=== PATIENT | male | born 1980 | race Caucasian/White ===

== ENCOUNTER 2018-10-21 21:55 | Emergency (ER) | payer BC, OTHER ==
--- OUTSIDE RECORDS SUMMARY | 2018-10-21 21:58 | XMS REPORT ---
:1980 Author Organization [facility] Address [address] [place] [address] Care Team Providers Name Role Phone Unavailable Unavailable Unavailable Problems This patient has no known problems. Allergies, Adverse Reactions, Alerts This patient has no known allergies or adverse reactions. Medications This patient has no known medications.
[2018-10-21] MEDS ORDERED: NA CHLORIDE 0.9% 1,000 ML ONE (22:50)
[2018-10-21] MEDS ORDERED: KETOROLAC 30 MG/ML INJ ONE (22:50)
[2018-10-21 23:14] LABS: Absolute Neutrophil 4.9 K/uL (1.8-8.0); Basophils % 0.8 % (0-1.3); Eosinophils % 1.6 % (0-4.4); Hematocrit 41.9 % (39.6-49.0); Lymphocytes % 32.6 % (15.3-44.8); MPV 8.3 fL (7.6-11.3); Monocytes % 11.1 % (3.3-12.3)
[2018-10-21 23:29] LABS: ALT/SGPT 32 U/L (12-78); AST/SGOT 12 U/L (15-37); Albumin 4.3 g/dL (3.4-5.0); Alkaline Phosphatase 115 U/L (45-117); BUN Blood Urea Nitrogen 23 mg/dL (7-18); Bicarbonate 27 mmol/L (21-32); Bilirubin Direct < 0.1 mg/dL (0-0.2); Bilirubin Total 0.3 mg/dL (0.2-1.0); Glucose Level 113 mg/dL (74-106); Lipase 123 U/L (73-393); Potassium 4.2 mmol/L (3.5-5.1); Protein, Total 7.1 g/dL (6.4-8.2); Sodium Level 142 mmol/L (136-145)
[2018-10-22 00:33] LABS: Urine Blood NEGATIVE (NEG); Urine Glucose NEGATIVE (NEG); Urine Protein NEGATIVE (NEG); Urine Specific Gravity >1.030 (1.005-1.030); Urine pH 5.5 (5.0-7.0)
--- NOTE | 2018-10-22 03:48 | EDPHYS ---
Physician Documentation [facility] Name: Jimenez Peña Age: 38 yrs Sex: Male : 1980 Arrival Date: 10/21/2018 Time: 21:56 Bed 16 Private MD: ED Physician Sam Mcgovern HPI: 10/21 22:25 This 38 yrs old Male presents to ER via Ambulatory with complaints of Low pkl Back Pain - rad to groin. 22:25 The patient presents with pain that is acute. The symptoms are located in the lower pkl back. The pain radiates to the both testicles. Onset: The symptoms/episode began/occurred 1 week(s) ago, and became worse today. Historical: - Allergies: 22:00 No Known Allergies; la1 - PMHx: 22:00 None; la1 - Immunization history:: Adult Immunizations up to date. - Social history:: Smoking status: Patient/guardian denies using tobacco. - Ebola Screening: : No symptoms or risks identified at this time. ROS: 22:25 Eyes: Negative for injury, pain, redness, and discharge, ENT: Negative for injury, pkl pain, and discharge, Neck: Negative for injury, pain, and swelling, Cardiovascular: Negative for chest pain, palpitations, and edema, Respiratory: Negative for shortness of breath, cough, wheezing, and pleuritic chest pain, Abdomen/GI: Negative for abdominal pain, nausea, vomiting, diarrhea, and constipation. 22:25 Back: Positive for pain at rest, of the lower back. 22:25 : Negative for urinary symptoms. 22:25 MS/extremity: Negative for acute changes. 22:25 Skin: Negative for rash. 22:25 Neuro: Negative for altered mental status. Exam: 22:25 Head/Face: Normocephalic, atraumatic. Eyes: Pupils equal round and reactive to light, pkl extra-ocular motions intact. Lids and lashes normal. Conjunctiva and sclera are non-icteric and not injected. Cornea within normal limits. Periorbital areas with no swelling, redness, or edema. ENT: Nares patent. No nasal discharge, no septal abnormalities noted. Tympanic membranes are normal and external auditory canals are clear. Oropharynx with no redness, swelling, or masses, exudates, or evidence of obstruction, uvula midline. Mucous membranes moist. Neck: Trachea midline, no thyromegaly or masses palpated, and no cervical lymphadenopathy. Supple, full range of motion without nuchal rigidity, or vertebral point tenderness. No Meningismus. Chest/axilla: Normal chest wall appearance and motion. Nontender with no deformity. No lesions are appreciated. Cardiovascular: Regular rate and rhythm with a normal S1 and S2. No gallops, murmurs, or rubs. Normal PMI, no JVD. No pulse deficits. Respiratory: Lungs have equal breath sounds bilaterally, clear to auscultation and percussion. No rales, rhonchi or wheezes noted. No increased work of breathing, no retractions or nasal flaring. Abdomen/GI: Soft, non-tender, with normal bowel sounds. No distension or tympany. No guarding or rebound. No evidence of tenderness throughout. 22:25 Back: pain, that is moderate, of the lower back. 22:25 : Exam negative for acute changes. 22:25 Musculoskeletal/extremity: Exam is negative for acute changes. 22:25 Skin: Exam negative for rash. 22:25 Neuro: Orientation: is normal, Mentation: is normal, Cranial nerves: grossly normal, Motor: is normal. Vital Signs: 22:00 BP 145 / 92; Pulse 64; Resp 18; Temp 97.4; Pulse Ox 98% on R/A; Weight 136.08 kg; la1 Height 5 ft. 11 in. (180.34 cm); 23:00 BP 138 / 78; Pulse 63; Resp 16; Pulse Ox 96% on R/A; jb4 10/22 00:00 BP 126 / 74; Pulse 75; Resp 16; Pulse Ox 96% on 2 lpm NC; jb4 01:00 BP 98 / 56; Pulse 80; Resp 16; Pulse Ox 96% on 2 lpm NC; jb4 02:00 BP 129 / 71; Pulse 76; Resp 16; Pulse Ox 98% on 2 lpm NC; jb4 03:00 BP 135 / 85; Pulse 72; Resp 16; Pulse Ox 98% on 2 lpm NC; jb4 03:45 BP 133 / 80; Pulse 76; Resp 16; Pulse Ox 100% on R/A; jb4 10/21 22:00 Body Mass Index 41.84 (136.08 kg, 180.34 cm) la1 MDM: 10/21 22:06 Patient medically screened. pkl 10/22 03:45 Data reviewed: vital signs, nurses notes. pkl 10/21 22:23 Order name: Basic Metabolic Panel; Complete Time: 00:25 pkl 10/21 22:23 Order name: CBC with Diff; Complete Time: 00:25 pkl 10/21 22:23 Order name: Creatinine for Radiology; Complete Time: 00:25 pkl 10/21 22:23 Order name: Hepatic Function; Complete Time: 00:25 pkl 10/21 22:23 Order name: Lipase; Complete Time: 00:25 pkl 10/21 22:30 Order name: Urine Dipstick--Ancillary (enter results); Complete Time: 02:36 mw2 10/22 00:26 Order name: CT Abd/Pelvis - W/Contrast pkl 10/21 22:23 Order name: IV Saline Lock; Complete Time: 22:48 pkl 10/21 22:23 Order name: Labs collected and sent; Complete Time: 22:48 pkl Administered Medications: 10/21 22:09 CANCELLED (Patient Refused): NS 0.9% (20 ml/kg) 20 ml/kg IV at 1 bolus once pkl 22:10 CANCELLED (Patient Refused): NS 0.9% (20 ml/kg) 20 ml/kg IV at 1 bolus once pkl 22:45 Drug: NS 0.9% 1000 ml Route: IV; Rate: 1000 ml; Site: right antecubital; 4 23:30 Follow up: Response: No adverse reaction; IV Status: Completed infusion [facility] 22:45 Drug: TORadol 30 mg Route: IVP; Site: right antecubital; 4 23:30 Follow up: Response: No adverse reaction; Pain is decreased jb4 Disposition: 10/22/18 03:48 Discharged to Home. Impression: Low back pain. Bilateral testicular pain. - Condition is Stable. - Prescriptions for Ultram 50 mg Oral Tablet - take 1 tablet by ORAL route every 8 hours As needed; 20 tablet. - Medication Reconciliation Form, Thank You Letter, Antibiotic Education, Prescription Opioid Use form. - Follow up: Janes Coulter MD; When: 1 - 2 days; Reason: Re-evaluation by your physician. - Problem is new. - Symptoms have improved. Signatures: Dispatcher [employer] EDMS Sam Mcgovern MD MD pkl Clay Nelson, RN RN la1 Gm Vail, RN RN jb4 Corrections: (The following items were deleted from the chart) 22:09 22:08 NS 0.9% (20 ml/kg) 20 ml/kg IV at 1 bolus once ordered. pkl pkl 22:10 22:08 NS 0.9% (20 ml/kg) 20 ml/kg IV at 1 bolus once ordered. pkl pkl 22:11 22:09 Chest Single View+RAD.RAD.BRZ ordered. EDMS EDMS 22:13 22:09 Group A Streptococcus Rapid Sc+BA.LAB.BRZ ordered. EDMS EDMS 22:14 22:09 CBC+H.LAB.BRZ ordered. EDMS EDMS 22:14 22:09 BASIC METABOLIC PANEL+C.LAB.BRZ ordered. EDMS EDMS 22:14 22:09 Influenza Screen (A \T\ B)+BA.LAB.BRZ ordered. EDSD EDSD 10/22 04:03 03:48 10/22/2018 03:48 Discharged to Home. Impression: Low back pain. Bilateral jb4 testicular pain. Condition is Stable. Forms are Medication Reconciliation Form, Thank You Letter, Antibiotic Education, Prescription Opioid Use. Follow up: Janes Coulter; When: 1 - 2 days; Reason: Re-evaluation by your physician. Problem is new. Symptoms have improved. pkl
--- NOTE | 2018-10-22 03:48 | ER ---
Nurse's Notes [facility] Name: Jimenez Peña Age: 38 yrs Sex: Male : 1980 Arrival Date: 10/21/2018 Time: 21:56 Bed 16 Private MD: Diagnosis: Low back pain. Bilateral testicular pain Presentation: 10/21 21:59 Presenting complaint: Patient states: for the last week I have had lower back pain that la1 radiates to my right groin area that is getting much worse today. the only thing that feels better is laying flat. Transition of care: patient was not received from another setting of care. Onset of symptoms was October 21, 2018. Risk Assessment: Do you want to hurt yourself or someone else? Patient reports no desire to harm self or others. Initial Sepsis Screen: Does the patient meet any 2 criteria? No. Patient's initial sepsis screen is negative. Does the patient have a suspected source of infection? No. Patient's initial sepsis screen is negative. Care prior to arrival: None. 21:59 Method Of Arrival: Ambulatory la1 21:59 Acuity: APRIL 3 la1 Historical: - Allergies: 22:00 No Known Allergies; la1 - PMHx: 22:00 None; la1 - Immunization history:: Adult Immunizations up to date. - Social history:: Smoking status: Patient/guardian denies using tobacco. - Ebola Screening: : No symptoms or risks identified at this time. Screenin:10 Abuse screen: Denies threats or abuse. Nutritional screening: No deficits noted. jb4 Tuberculosis screening: No symptoms or risk factors identified. Fall Risk None identified. Assessment: 22:10 General: Appears in no apparent distress. uncomfortable, Behavior is calm, cooperative, jb4 appropriate for age. Pain: Complains of pain in low back area Pain radiates to groin Pain currently is 4 out of 10 on a pain scale. at worst was 9 out of 10 on a pain scale. Quality of pain is described as stabbing. Neuro: Level of Consciousness is awake, alert, obeys commands, Oriented to person, place, time, situation. Cardiovascular: Patient's skin is warm and dry. Respiratory: Airway is patent Respiratory effort is even, unlabored, Respiratory pattern is regular, symmetrical. GI: No signs and/or symptoms were reported involving the gastrointestinal system. : Reports pain testicle, Denies burning with urination, discharge. EENT: No signs and/or symptoms were reported regarding the EENT system. Derm: Skin is intact, Skin is pink, warm \T\ dry. Musculoskeletal: Circulation, motion, and sensation intact. 23:00 Reassessment: Patient appears in no apparent distress at this time. Patient and/or jb4 family updated on plan of care and expected duration. Pain level reassessed. Patient is alert, oriented x 3, equal unlabored respirations, skin warm/dry/pink. 10/22 00:00 Reassessment: Patient appears in no apparent distress at this time. Patient and/or jb4 family updated on plan of care and expected duration. Pain level reassessed. Patient is alert, oriented x 3, equal unlabored respirations, skin warm/dry/pink. Pt placed on 2l NC while sleeping due to O2 sats dropping to 88% on RA. 01:00 Reassessment: Patient appears in no apparent distress at this time. Patient and/or jb4 family updated on plan of care and expected duration. Pain level reassessed. Pt is resting with eyes closed respirations are even and unlabored. 01:51 Reassessment: Patient appears in no apparent distress at this time. Patient and/or jb4 family updated on plan of care and expected duration. Pain level reassessed. Patient is alert, oriented x 3, equal unlabored respirations, skin warm/dry/pink. 03:00 Reassessment: Patient appears in no apparent distress at this time. Patient and/or jb4 family updated on plan of care and expected duration. Pain level reassessed. Patient is alert, oriented x 3, equal unlabored respirations, skin warm/dry/pink. 04:01 Reassessment: Patient appears in no apparent distress at this time. Patient and/or jb4 family updated on plan of care and expected duration. Pain level reassessed. Patient is alert, oriented x 3, equal unlabored respirations, skin warm/dry/pink. Vital Signs: 10/21 22:00 BP 145 / 92; Pulse 64; Resp 18; Temp 97.4; Pulse Ox 98% on R/A; Weight 136.08 kg; la1 Height 5 ft. 11 in. (180.34 cm); 23:00 BP 138 / 78; Pulse 63; Resp 16; Pulse Ox 96% on R/A; jb4 10/22 00:00 BP 126 / 74; Pulse 75; Resp 16; Pulse Ox 96% on 2 lpm NC; jb4 01:00 BP 98 / 56; Pulse 80; Resp 16; Pulse Ox 96% on 2 lpm NC; jb4 02:00 BP 129 / 71; Pulse 76; Resp 16; Pulse Ox 98% on 2 lpm NC; jb4 03:00 BP 135 / 85; Pulse 72; Resp 16; Pulse Ox 98% on 2 lpm NC; jb4 03:45 BP 133 / 80; Pulse 76; Resp 16; Pulse Ox 100% on R/A; jb4 10/21 22:00 Body Mass Index 41.84 (136.08 kg, 180.34 cm) la1 ED Course: 10/21 21:56 Patient arrived in ED. am2 21:59 Triage completed. la1 22:00 Arm band placed on left wrist. la1 22:01 Gm Vail, RASHAWN is Primary Nurse. jb4 22:06 Sam Mcgovern MD is Attending Physician. pkl 22:10 Patient has correct armband on for positive identification. Bed in low position. Call jb4 light in reach. Side rails up X 1. Pulse ox on. NIBP on. 22:50 Inserted saline lock: 18 gauge in right antecubital area, using aseptic technique. mb4 Blood collected. 22:51 Initial lab(s) drawn, by me, sent to lab. mb4 10/22 02:[address] via wheelchair. kw1 02:52 CT Abd/Pelvis - W/Contrast In Process Unspecified. EDMS 03:46 Janes Coulter MD is Referral Physician. pkl 04:02 No provider procedures requiring assistance completed. jb4 04:02 IV discontinued, intact, bleeding controlled. jb4 Administered Medications: 10/21 22:09 CANCELLED (Patient Refused): NS 0.9% (20 ml/kg) 20 ml/kg IV at 1 bolus once pkl 22:10 CANCELLED (Patient Refused): NS 0.9% (20 ml/kg) 20 ml/kg IV at 1 bolus once pkl 22:45 Drug: NS 0.9% 1000 ml Route: IV; Rate: 1000 ml; Site: right antecubital; jb4 23:30 Follow up: Response: No adverse reaction; IV Status: Completed infusion jb4 22:45 Drug: TORadol 30 mg Route: IVP; Site: right antecubital; jb4 23:30 Follow up: Response: No adverse reaction; Pain is decreased jb4 Outcome: 10/22 03:48 Discharge ordered by . tali 04:02 Discharged to home ambulatory. jb4 04:02 Condition: stable 04:02 Discharge instructions given to patient, Instructed on discharge instructions, follow up and referral plans. medication usage, Demonstrated understanding of instructions, follow-up care, medications, Prescriptions given X 1. 04:03 Patient left the ED. jb4 Signatures: Dispatcher [employer] EDMS Sam Mcgovern MD MD pkl Attema, Lee RN RN Gm Strauss RN RN jb4 Sammi Hinds Kimberly kw1 Susie Gil4 Corrections: (The following items were deleted from the chart) 10/21 22:47 21:45 TORadol 30 mg IVP in right antecubital jb4 jb4
--- NOTE | 2018-10-23 10:18 | RAD REPORT ---
EXAM DESCRIPTION: CT - Abdomen Pelvis W Contrast CLINICAL HISTORY: Abdominal pain TECHNIQUE: Multiple helical axial images were obtained through the abdomen and pelvis using intraven ous contrast (95 mL [id number]-300). Coronal and sagittal reformatted images were obtained. All CT scans at this facility use dose modulation, iterative reconstruction, and/or weight-based dosi ng when appropriate to reduce radiation dose to as low as reasonable achievable. COMPARISON: None. FINDINGS: Lung bases: Appear unremarkable. Liver: Homogenous attenuation is noted. Gallbladder/biliary: Appear unremarkable. Pancreas: Unremarkable. No evidence of ductal enlargement. Spleen: Appears unremarkable. No splenomegaly. Adrenals: Unremarkable. Kidneys and ureters: No evidence of hydronephrosis. Normal enhancement. Bladder: Unremarkable. Pelvic organs: Unremarkable. Bowel: Colonic diverticula are present. There is trace stranding near a diverticulum of the descendin g colon. No evidence of bowel obstruction. No bowel wall thickening. Appendix appears unremarkable. Vasculature: Unremarkable. Peritoneum: No free air. No significant free fluid. Lymph nodes: Unremarkable. Soft tissues: Unremarkable. Bones: Unremarkable. IMPRESSION: Trace stranding near a descending colon diverticulum which may be related to early diver ticulitis. Electronically signed by Ryan Doshi MD 10/22/2018 3:18 AM HOSPICE CARE TRANSITIONS COORDINATOR Due to temporary technical issues with the PACS/Fluency reporting system, reports are being signed by the in house radiologist as a courtesy to ensure prompt reporting. The interpreting radiologist is f ully responsible for the content of the report.
== END 2018-10-22 04:03 | disposition home or self-care (01) ==
LOC: ER 21:55
DX: M54.5 Low back pain (principal); N50.812 Left testicular pain; N50.811 Right testicular pain
CPT/HCPCS: 36415; 74177; 80048; 80076; 81003; 83690; 85025; 96361; 96374; 99284; J7030